=== PATIENT | female | born 1945 | race Caucasian/White ===

== ENCOUNTER 2016-07-19 16:09 | Inpatient (IN) | payer MEDICARE ==
[~2016-07-19] VITALS: Ht 154.9 cm; Wt 52.6 kg
[~2016-07-19 16:09] MED LIST: CHOL20006 PO; DIVA125T3 PO; LEVO125T8 PO; LORA0.5T PO; MELA3TAB PO; MEMA10TA PO; POTA10CA43 PO; RISP0.5T2 PO; RISP1TAB7 PO; RIVA1PAT3 TP; SERT100T PO
[2016-07-19] MEDS ORDERED: SULFAMETH/TRIMETH 800/160 MG 1 UDTAB TABLET PO ONE (16:30)
[2016-07-19 16:50] LABS: CALCIUM, SERUM 9.6 mg/dL (8.5-10.1); CARBON DIOXIDE 27 mmol/L (21-32); CHLORIDE 107 mmol/L (98-107); CREATININE 0.6 mg/dL (0.6-1.3); GLUCOSE 108 mg/dL (74-106); POTASSIUM 3.1 mmol/L (3.5-5.1); SODIUM SERUM 145 mmol/L (136-145); UREA NITROGEN, BLOOD 14 mg/dL (7-18)
[2016-07-19 17:04] LABS: BASOPHILS % (AUTO) 0.5 % (0.0-2.0); EOSINOPHILS # (AUTO) 0.1 /CMM (0.0-0.7)
[2016-07-19 17:11] LABS: EOSINOPHILS % (AUTO) 0.8 % (0.0-6.0); HEMATOCRIT 40 % (33-45); HEMOGLOBIN 13.2 g/dL (11.5-14.8); LYMPHOCYTES # (AUTO) 2.5 /CMM (0.8-4.8); LYMPHOCYTES % (AUTO) 29.9 % (20.0-44.0); MEAN CORPUSCULAR HEMOGLOBIN 31 PG (26.0-33.0); MEAN CORPUSCULAR HGB CONC 33 g/dl (31.0-36.0); MEAN CORPUSCULAR VOLUME 94 fL (82-100); MONOCYTES # (AUTO) 0.4 /CMM (0.1-1.30); NEUTROPHILS # (AUTO) 5.4 /CMM (1.8-8.9); NEUTROPHILS % (AUTO) 63.8 % (43.0-81.0); PLATELET COUNT (AUTO) 242 /CMM (150-450); RED BLOOD CELL COUNT(AUTO) 4.23 MIL/uL (4.0-5.2); WHITE BLOOD COUNT (AUTO) 8.4 K/uL (4.3-11.0)
[2016-07-19 17:18] LABS: TROPONIN I < 0.017 ng/mL (0.00-0.056)
[2016-07-19 17:33] LABS: EOSINOPHILS % (MANUAL) 1 % (0-4); LYMPHOCYTES % (MANUAL) 29 % (16-48); MONOCYTES % (MANUAL) 4 % (0-11.0); NEUTROPHILS % (MANUAL) 66 (42-76)
[2016-07-19] MEDS ORDERED: LORAZEPAM INJ 2 MG/ML VIAL ONE (17:50)
[2016-07-19] MEDS ORDERED: LORAZEPAM INJ 2 MG/ML VIAL IV ONE (18:00)
[2016-07-19 18:05] LABS: INR 0.92 (0.87-1.13); PROTHROMBIN TIME 9.8 SECS (9.5-12.7)
[2016-07-19] MEDS ORDERED: LEVO150T8 PO (19:02)
[2016-07-19] MEDS ORDERED: MIRT15TA PO (19:02)
[2016-07-19] MEDS ORDERED: LEVE500T9 PO (19:02)
[2016-07-19 21:10] VITALS: BP 130/94
[2016-07-19] MEDS ORDERED: SERTRALINE HCL 50 MG TABLET ONE (21:54)
[2016-07-19] MEDS: SERTRALINE HCL 50 MG TABLET PO SCH (21:59)
[2016-07-19] MEDS ORDERED: ACETAMINOPHEN 650 MG/20.3 ML UDC PO PRN (22:30)
[2016-07-19] MEDS ORDERED: ZOLPIDEM TARTRATE 5 MG TABLET PO PRN (22:30)
[2016-07-19] MEDS ORDERED: LORAZEPAM 0.5 MG TABLET PO PRN (22:30)
[2016-07-19] MEDS ORDERED: ONDANSETRON HCL/PF 4 MG/2 ML VIAL IV PRN (22:30)
[2016-07-19] MEDS ORDERED: LORAZEPAM 0.5 MG TABLET ONE (23:44)
[2016-07-20 06:53] LABS: BASOPHILS % (AUTO) 0.2 % (0.0-2.0); HEMATOCRIT 33 % (33-45); HEMOGLOBIN 11.4 g/dL (11.5-14.8); LYMPHOCYTES % (AUTO) 10.8 % (20.0-44.0); MEAN CORPUSCULAR HEMOGLOBIN 32 PG (26.0-33.0); MEAN CORPUSCULAR HGB CONC 34 g/dl (31.0-36.0); MEAN CORPUSCULAR VOLUME 93 fL (82-100); MONOCYTES # (AUTO) 0.6 /CMM (0.1-1.30); MONOCYTES % (AUTO) 5.7 % (2.0-12.0); NEUTROPHILS # (AUTO) 8.1 /CMM (1.8-8.9); NEUTROPHILS % (AUTO) 83.3 % (43.0-81.0); PLATELET COUNT (AUTO) 270 /CMM (150-450); RDW COEFFICIENT OF VARIATION 13.2 (11.5-15.0); RED BLOOD CELL COUNT(AUTO) 3.58 MIL/uL (4.0-5.2); WHITE BLOOD COUNT (AUTO) 9.7 K/uL (4.3-11.0)
[2016-07-20] MEDS ORDERED: ALPR0.5T8 PO (07:11)
[2016-07-20 07:20] VITALS: BP 142/82
[2016-07-20 07:20] LABS: CALCIUM, SERUM 8.6 mg/dL (8.5-10.1); CREATININE 0.6 mg/dL (0.6-1.3); MAGNESIUM 1.8 mg/dL (1.8-2.4)
[2016-07-20] MEDS: MORPHINE SULFATE INJ 2 MG/ML DISP.SYRIN IV PRN (07:24)
[2016-07-20] MEDS ORDERED: LEVOTHYROXINE SODIUM 150 MCG TABLET PO SCH (07:30)
[2016-07-20] MEDS: LEVETIRACETAM (250 MG) 250 MG TABLET PO SCH ×2 (07:48→20:55)
[2016-07-20 07:50] LABS: POTASSIUM 2.7 mmol/L (3.5-5.1)
[2016-07-20 08:00] VITALS: BP 135/81
[2016-07-20] MEDS ORDERED: POTASSIUM CHLORIDE 20 MEQ TAB.PRT.SR PO ONE (08:30)
[2016-07-20] MEDS: LEVOTHYROXINE SODIUM 75 MCG TABLET PO SCH (08:34)
[2016-07-20] MEDS: SERTRALINE HCL 50 MG TABLET PO SCH ×2 (08:41→20:56)
[2016-07-20] MEDS: POTASSIUM CHLORIDE 10 MEQ TABLET.SA PO SCH (08:41)
[2016-07-20] MEDS: CHOLECALCIFEROL 1,000 UNIT TABLET (VIT D3) PO SCH (08:42)
[2016-07-20] MEDS: MEMANTINE HCL 5 MG TABLET PO SCH (08:42)
[2016-07-20] MEDS: risperiDONE 1 MG TABLET PO SCH ×2 (08:51→20:57)
[2016-07-20] MEDS ORDERED: risperiDONE 1 MG TABLET PO SCH (09:00)
[2016-07-20] MEDS ORDERED: LEVETIRACETAM (250 MG) 250 MG TABLET PO SCH (09:00)
[2016-07-20] MEDS ORDERED: POTASSIUM CHLORIDE 10 MEQ TABLET.SA PO ONE (09:00)
[2016-07-20] MEDS ORDERED: IV SET PRIMARY PUMP SET 1 EA INFUS.SET MC ONE ×2 (09:22)
[2016-07-20] MEDS ORDERED: SECONDARY IV SET 1 EA INFUS.SET MC ONE (09:26)
[2016-07-20] MEDS ORDERED: IV NS 0.9% 250 ML IV ONE (09:26)
[2016-07-20] MEDS: LORAZEPAM 0.5 MG TABLET PO PRN ×3 (09:36→23:48)
[2016-07-20] MEDS: RIVASTIGMINE TARTRATE 4.6 MG PATCH.TD24 TD SCH (09:37)
[2016-07-20] MEDS: POTASSIUM CL. PREMIX PERIPHER. 50 ML IV SCH ×4 (09:37→14:46)
[2016-07-20] MEDS ORDERED: DIVALPROEX SODIUM 125 MG TABLET.DR PO SCH (13:00)
[2016-07-20] MEDS: DIVALPROEX SODIUM 125 MG TABLET.DR PO SCH (13:53)
[2016-07-20 14:14] LABS: THYROID STIMULATING HORMONE 7.647 uIU/mL (0.358-3.74)
[2016-07-20] MEDS: ENOXAPARIN SODIUM 40 MG/0.4 ML DISP.SYRIN SQ SCH (15:10)
[2016-07-20 16:00] VITALS: BP 144/72
[2016-07-20 20:00] VITALS: BP 131/77
[2016-07-20] MEDS: MIRTAZAPINE 15 MG TABLET PO SCH (20:57)
[2016-07-20] MEDS ORDERED: ENOXAPARIN SODIUM 40 MG/0.4 ML DISP.SYRIN SQ SCH (21:00)
[2016-07-21] VITALS (10 sets, daily range): BP systolic 94–117; BP diastolic 32–79
[2016-07-21] MEDS: LEVETIRACETAM (250 MG) 250 MG TABLET PO SCH ×2 (06:43→20:00)
[2016-07-21] MEDS: PANTOPRAZOLE 40 MG TABLET.DR PO SCH (06:43)
[2016-07-21] MEDS: LEVOTHYROXINE SODIUM 75 MCG TABLET PO SCH (06:43)
[2016-07-21 06:59] LABS: BASOPHILS % (AUTO) 0.3 % (0.0-2.0); EOSINOPHILS % (AUTO) 0.4 % (0.0-6.0); HEMATOCRIT 33 % (33-45); HEMOGLOBIN 11.2 g/dL (11.5-14.8); LYMPHOCYTES # (AUTO) 1.3 /CMM (0.8-4.8); LYMPHOCYTES % (AUTO) 13.3 % (20.0-44.0); MEAN CORPUSCULAR HEMOGLOBIN 32 PG (26.0-33.0); MEAN CORPUSCULAR HGB CONC 34 g/dl (31.0-36.0); MEAN CORPUSCULAR VOLUME 95 fL (82-100); MONOCYTES # (AUTO) 0.7 /CMM (0.1-1.30); MONOCYTES % (AUTO) 7.4 % (2.0-12.0); NEUTROPHILS # (AUTO) 7.4 /CMM (1.8-8.9); NEUTROPHILS % (AUTO) 78.6 % (43.0-81.0); PLATELET COUNT (AUTO) 240 /CMM (150-450); RDW COEFFICIENT OF VARIATION 13.1 (11.5-15.0); RED BLOOD CELL COUNT(AUTO) 3.51 MIL/uL (4.0-5.2); WHITE BLOOD COUNT (AUTO) 9.4 K/uL (4.3-11.0)
[2016-07-21 07:15] LABS: CALCIUM, SERUM 8.6 mg/dL (8.5-10.1); CREATININE 0.6 mg/dL (0.6-1.3); MAGNESIUM 1.9 mg/dL (1.8-2.4); PHOSPHORUS 2.8 mg/dL (2.5-4.9); POTASSIUM 3.6 mmol/L (3.5-5.1)
[2016-07-21] MEDS: MEMANTINE HCL 5 MG TABLET PO SCH (08:20)
[2016-07-21] MEDS: CHOLECALCIFEROL 1,000 UNIT TABLET (VIT D3) PO SCH (08:20)
[2016-07-21] MEDS: SERTRALINE HCL 50 MG TABLET PO SCH ×2 (08:20→21:00)
[2016-07-21] MEDS: risperiDONE 1 MG TABLET PO SCH ×2 (08:21→22:00)
[2016-07-21] MEDS: POTASSIUM CHLORIDE 10 MEQ TABLET.SA PO SCH (08:21)
[2016-07-21] MEDS: RIVASTIGMINE TARTRATE 4.6 MG PATCH.TD24 TD SCH (08:21)
[2016-07-21] MEDS ORDERED: IV SET PRIMARY PUMP SET 1 EA INFUS.SET MC ONE (09:22)
[2016-07-21] MEDS: IV 1/2NS 1000 ML 1,000 ML IV PRN (09:29)
[2016-07-21] MEDS: MORPHINE SULFATE INJ 2 MG/ML DISP.SYRIN IV PRN (09:53)
[2016-07-21] MEDS: DIVALPROEX SODIUM 125 MG TABLET.DR PO SCH (14:00)
[2016-07-21] MEDS ORDERED: ANESTHESIA TRAY IN PYXIS 1 EA TRAY MC ONE ×2 (16:35→18:42)
[2016-07-21] MEDS ORDERED: BACITRACIN 50000 UNITS/VIAL ONE (16:38)
[2016-07-21] MEDS ORDERED: ROCURONIUM BROMIDE 50 MG/5 ML ONE (16:56)
[2016-07-21] MEDS ORDERED: FENTANYL PF 100MCG/2ML AMPUL ONE (16:56)
[2016-07-21] MEDS ORDERED: BUPIVACAINE 0.5 % PF 150 MG/30 ML VIAL ONE (18:18)
[2016-07-21] MEDS: ENOXAPARIN SODIUM 40 MG/0.4 ML DISP.SYRIN SQ SCH (20:45)
[2016-07-21] MEDS: MIRTAZAPINE 15 MG TABLET PO SCH (22:00)
[2016-07-22] MEDS: MORPHINE SULFATE INJ 2 MG/ML DISP.SYRIN IV PRN ×3 (01:05→18:23)
[2016-07-22] MEDS: ANCEF 1 GM/50 ML D5W IV SCH ×6 (01:05→17:53)
[2016-07-22] MEDS ORDERED: SECONDARY IV SET 1 EA INFUS.SET MC ONE ×2 (01:06→14:51)
[2016-07-22] MEDS: LEVETIRACETAM (250 MG) 250 MG TABLET PO SCH ×2 (01:12→20:48)
[2016-07-22] MEDS: risperiDONE 1 MG TABLET PO SCH ×3 (01:13→21:54)
[2016-07-22] MEDS: MIRTAZAPINE 15 MG TABLET PO SCH ×2 (01:14→21:58)
[2016-07-22] MEDS: SERTRALINE HCL 50 MG TABLET PO SCH ×3 (01:15→20:48)
[2016-07-22] MEDS: IV 1/2NS 1000 ML 1,000 ML IV PRN (05:29)
[2016-07-22 07:53] LABS: BASOPHILS % (AUTO) 0.1 % (0.0-2.0); EOSINOPHILS # (AUTO) 0.1 /CMM (0.0-0.7); EOSINOPHILS % (AUTO) 0.7 % (0.0-6.0); HEMATOCRIT 29 % (33-45); LYMPHOCYTES # (AUTO) 1.2 /CMM (0.8-4.8); LYMPHOCYTES % (AUTO) 14.7 % (20.0-44.0); MEAN CORPUSCULAR HEMOGLOBIN 33 PG (26.0-33.0); MEAN CORPUSCULAR HGB CONC 35 g/dl (31.0-36.0); MEAN CORPUSCULAR VOLUME 94 fL (82-100); MONOCYTES # (AUTO) 0.5 /CMM (0.1-1.30); MONOCYTES % (AUTO) 6.6 % (2.0-12.0); NEUTROPHILS # (AUTO) 6.1 /CMM (1.8-8.9); NEUTROPHILS % (AUTO) 77.9 % (43.0-81.0); PLATELET COUNT (AUTO) 211 /CMM (150-450); RDW COEFFICIENT OF VARIATION 12.8 (11.5-15.0); RED BLOOD CELL COUNT(AUTO) 3.09 MIL/uL (4.0-5.2); WHITE BLOOD COUNT (AUTO) 7.9 K/uL (4.3-11.0)
[2016-07-22 08:00] VITALS: BP 95/62
[2016-07-22 08:01] LABS: CALCIUM, SERUM 8.3 mg/dL (8.5-10.1); CREATININE 0.6 mg/dL (0.6-1.3); MAGNESIUM 1.8 mg/dL (1.8-2.4); PHOSPHORUS 4.1 mg/dL (2.5-4.9); POTASSIUM 3.3 mmol/L (3.5-5.1)
[2016-07-22 08:23] VITALS: BP 95/62
[2016-07-22] MEDS: CHOLECALCIFEROL 1,000 UNIT TABLET (VIT D3) PO SCH (09:24)
[2016-07-22] MEDS: PANTOPRAZOLE 40 MG TABLET.DR PO SCH (09:24)
[2016-07-22] MEDS: POTASSIUM CHLORIDE 10 MEQ TABLET.SA PO SCH (09:25)
[2016-07-22] MEDS: LEVOTHYROXINE SODIUM 175 MCG TABLET PO SCH (09:25)
[2016-07-22] MEDS: MEMANTINE HCL 5 MG TABLET PO SCH (09:25)
[2016-07-22] MEDS: RIVASTIGMINE TARTRATE 4.6 MG PATCH.TD24 TD SCH (09:26)
[2016-07-22] MEDS ORDERED: IV SET PRIMARY PUMP SET 1 EA INFUS.SET MC ONE (10:11)
[2016-07-22 10:19] LABS: *SPE A/G RATIO 1.3 (0.7-1.7); *SPE ALBUMIN 3.5 g/dL (2.9-4.4); *SPE ALPHA-1-GLOBULIN 0.3 g/dL (0.0-0.4); *SPE ALPHA-2-GLOBULIN 0.8 g/dL (0.4-1.0); *SPE BETA GLOBULIN 1.1 g/dL (0.7-1.3); *SPE GLOBULIN, TOTAL 2.8 g/dL (2.2-3.9); *SPE M-SPIKE Not Observed g/dL (Not Observed); *SPE PROTEIN TOTAL 6.3 g/dL (6.0-8.5); *SPEGAMMA GLOBULIN 0.6 g/dL (0.4-1.8)
[2016-07-22] MEDS: POTASSIUM CL. PREMIX PERIPHER. 50 ML IV SCH ×2 (10:51→11:56)
[2016-07-22] MEDS: DIVALPROEX SODIUM 125 MG TABLET.DR PO SCH (15:01)
[2016-07-22] MEDS: SOD FERRIC GLUC 125 MG in IV NS 0.9% 100 ML IV SCH (15:02)
[2016-07-22 15:59] VITALS: BP 115/93
[2016-07-22 20:00] VITALS: BP 106/75
[2016-07-22] MEDS ORDERED: ENOXAPARIN SODIUM 40 MG/0.4 ML DISP.SYRIN SQ SCH (21:00)
[2016-07-22 22:00] VITALS: BP 106/75
[2016-07-22] MEDS: LORAZEPAM 0.5 MG TABLET PO PRN (23:36)
[2016-07-23] MEDS: IV 1/2NS 1000 ML 1,000 ML IV PRN (00:37)
[2016-07-23] MEDS: MORPHINE SULFATE INJ 2 MG/ML DISP.SYRIN IV PRN (01:30)
[2016-07-23 06:40] LABS: BASOPHILS % (AUTO) 0.2 % (0.0-2.0); EOSINOPHILS # (AUTO) 0.2 /CMM (0.0-0.7); EOSINOPHILS % (AUTO) 2.1 % (0.0-6.0); HEMATOCRIT 26 % (33-45); HEMOGLOBIN 8.9 g/dL (11.5-14.8); LYMPHOCYTES # (AUTO) 1.4 /CMM (0.8-4.8); LYMPHOCYTES % (AUTO) 18.4 % (20.0-44.0); MEAN CORPUSCULAR HEMOGLOBIN 32 PG (26.0-33.0); MEAN CORPUSCULAR HGB CONC 34 g/dl (31.0-36.0); MEAN CORPUSCULAR VOLUME 94 fL (82-100); MONOCYTES # (AUTO) 0.6 /CMM (0.1-1.30); MONOCYTES % (AUTO) 7.5 % (2.0-12.0); NEUTROPHILS # (AUTO) 5.6 /CMM (1.8-8.9); NEUTROPHILS % (AUTO) 71.8 % (43.0-81.0); PLATELET COUNT (AUTO) 217 /CMM (150-450); RDW COEFFICIENT OF VARIATION 13.3 (11.5-15.0); RED BLOOD CELL COUNT(AUTO) 2.76 MIL/uL (4.0-5.2); WHITE BLOOD COUNT (AUTO) 7.8 K/uL (4.3-11.0)
[2016-07-23 07:08] LABS: CALCIUM, SERUM 8.3 mg/dL (8.5-10.1); CREATININE 0.7 mg/dL (0.6-1.3); MAGNESIUM 1.8 mg/dL (1.8-2.4); PHOSPHORUS 3.5 mg/dL (2.5-4.9); POTASSIUM 3.5 mmol/L (3.5-5.1)
[2016-07-23 08:00] VITALS: BP 92/59
[2016-07-23] MEDS: CHOLECALCIFEROL 1,000 UNIT TABLET (VIT D3) PO SCH (08:23)
[2016-07-23] MEDS: SERTRALINE HCL 50 MG TABLET PO SCH (08:23)
[2016-07-23] MEDS: RIVASTIGMINE TARTRATE 4.6 MG PATCH.TD24 TD SCH (08:23)
[2016-07-23] MEDS: PANTOPRAZOLE 40 MG TABLET.DR PO SCH (08:24)
[2016-07-23] MEDS: LEVOTHYROXINE SODIUM 175 MCG TABLET PO SCH (08:24)
[2016-07-23] MEDS: risperiDONE 1 MG TABLET PO SCH (08:24)
[2016-07-23] MEDS: MEMANTINE HCL 5 MG TABLET PO SCH (08:24)
[2016-07-23] MEDS: LEVETIRACETAM (250 MG) 250 MG TABLET PO SCH (08:24)
[2016-07-23] MEDS: POTASSIUM CHLORIDE 10 MEQ TABLET.SA PO SCH (08:24)
[2016-07-23] MEDS ORDERED: Potassium Chloride 40 MEQ in IV D5/ 0.9% NACL 1,000 ML IV PRN (09:30)
[2016-07-23] MEDS ORDERED: NA PHOS,M-B/NA PHOS,DI-BA 1 EA ENEMA RC ONE (12:00)
[2016-07-23] MEDS ORDERED: SECONDARY IV SET 1 EA INFUS.SET MC ONE (12:54)
[2016-07-23] MEDS: SOD FERRIC GLUC 125 MG in IV NS 0.9% 100 ML IV SCH (13:16)
[2016-07-23] MEDS: DIVALPROEX SODIUM 125 MG TABLET.DR PO SCH (13:16)
[2016-07-23] MEDS: LORAZEPAM 0.5 MG TABLET PO PRN (15:23)
== END 2016-07-23 16:32 | DRG 482 ==
LOC: ER 16:10 → MEDSG2 19:04
PROVIDERS: ADMIT Internal Medicine; ATTEND Internal Medicine
PROC: 0QS706Z Reposition Left Upper Femur with Intramedullary Internal Fixation Device, Open Approach (ICD-10-PCS; principal; 2016-07-21 17:55)
DX: S72.142A Displaced intertrochanteric fracture of left femur, initial encounter for closed fracture (principal); E87.6 Hypokalemia; F39 Unspecified mood [affective] disorder; E03.9 Hypothyroidism, unspecified; G30.9 Alzheimer's disease, unspecified; F02.80 Dementia in other diseases classified elsewhere, unspecified severity, without behavioral disturbance, psychotic disturbance, mood disturbance, and anxiety; Z66 Do not resuscitate; Z79.899 Other long term (current) drug therapy; W18.30XA Fall on same level, unspecified, initial encounter; Y93.9 Activity, unspecified; Y92.009 Unspecified place in unspecified non-institutional (private) residence as the place of occurrence of the external cause; Y99.9 Unspecified external cause status; D50.9 Iron deficiency anemia, unspecified; R78.89 Finding of other specified substances, not normally found in blood; Z90.49 Acquired absence of other specified parts of digestive tract
CPT/HCPCS: 36415; 71010-TC; 72170-TC; 73020; 73550-TC; 80048-TC; 82306; 82728-TC; 83540-TC; 83735-TC; 84100-TC; 84155; 84165; 84439-TC; 84443-TC; 84484-TC; 85025-TC; 85730-TC; 86850-TC; 86921-TC; 87081-TC; 93307-TC; 97001-TC; 97116-TC; 97530-TC; A4606; A6209; A6402; C1713; J0690; J1100; J1650; J2060; J2270; J2405; J2704; J2916; J3010; J3480; J3490; J7030; J7042; J7050; J7060; Z7610

== ENCOUNTER 2016-11-16 14:58 | Emergency (ER) | payer MEDICARE ==
[~2016-11-16] VITALS: Ht 154.9 cm; Wt 60.8 kg
[~2016-11-16 14:58] MED LIST changes: +ALPR0.5T8 PO; +LEVE500T9 PO; -LEVO125T8 PO; +LEVO150T8 PO; +MIRT15TA PO
--- NOTE | 2016-11-16 15:05 | NUR ---
[id number] BIBRA 89 from home sent by PMD for multiple seizure today x 2 episodes. Skin is warm and non diaphoretic. Resp is even and unlabored with nad noted. Skin is warm and dry. Assisted to hospital gown. Placed on monitor. Will continuously monitor the patient. Dr Suazo at [facility] for eval.
[2016-11-16 15:29] LABS: BASOPHILS % (AUTO) 0.2 % (0.0-2.0); EOSINOPHILS % (AUTO) 0.1 % (0.0-6.0); HEMATOCRIT 39 % (33-45); HEMOGLOBIN 12.9 g/dL (11.5-14.8); LYMPHOCYTES # (AUTO) 1.1 /CMM (0.8-4.8); LYMPHOCYTES % (AUTO) 8.6 % (20.0-44.0); MEAN CORPUSCULAR HEMOGLOBIN 30 PG (26.0-33.0); MEAN CORPUSCULAR HGB CONC 33 g/dl (31.0-36.0); MEAN CORPUSCULAR VOLUME 91 fL (82-100); MONOCYTES # (AUTO) 0.5 /CMM (0.1-1.30); MONOCYTES % (AUTO) 3.7 % (2.0-12.0); NEUTROPHILS # (AUTO) 11.6 /CMM (1.8-8.9); NEUTROPHILS % (AUTO) 87.4 % (43.0-81.0); PLATELET COUNT (AUTO) 422 /CMM (150-450); RDW COEFFICIENT OF VARIATION 13.6 (11.5-15.0); RED BLOOD CELL COUNT(AUTO) 4.28 MIL/uL (4.0-5.2); WHITE BLOOD COUNT (AUTO) 13.3 K/uL (4.3-11.0)
[2016-11-16 15:42] LABS: CARBON DIOXIDE 24 mmol/L (21-32); CHLORIDE 105 mmol/L (98-107); CREATININE 0.9 mg/dL (0.6-1.3); GLUCOSE 180 mg/dL (74-106); POTASSIUM 3.7 mmol/L (3.5-5.1); SODIUM SERUM 142 mmol/L (136-145); UREA NITROGEN, BLOOD 15 mg/dL (7-18)
--- NOTE | 2016-11-16 15:42 | NUR ---
Patient transported for CT via gurney. Patient remains in stable condition at this time.
[2016-11-16 15:48] LABS: INR 0.94 (0.87-1.13)
[2016-11-16 15:49] LABS: TROPONIN I < 0.017 ng/mL (0.00-0.056)
[2016-11-16 15:56] LABS: ALCOHOL, BLOOD < 3 mg/dL (0-0)
[2016-11-16 16:03] LABS: APPEARANCE,URINE SL CLOUDY (CLEAR); BILIRUBIN,URINE NEGATIVE (NEGATIVE); BLOOD, URINE 1+ Ery/uL (NEGATIVE); COLOR,URINE YELLOW (YELLOW); KETONES,URINE NEGATIVE (NEGATIVE); LEUKOCYTE ESTERASE ,URINE NEGATIVE (NEGATIVE); NITRITE, URINE NEGATIVE (NEGATIVE); PROTEIN,URINE NEGATIVE (NEGATIVE); UGLUCOSE NEGATIVE (NEGATIVE); UROBILINOGEN,URINE 0.2 EU/dL (0.2)
[2016-11-16] MEDS ORDERED: MELA5TAB PO (16:15)
[2016-11-16] MEDS ORDERED: HYDR-552 PO (16:15)
[2016-11-16 16:55] LABS: BACTERIA,URINE Rare /HPF (None Seen); SQUAMOUS EPITHELIAL CELL,UR Few /HPF (None Seen); WBC,URINE 0-2 /HPF (0-3)
--- NOTE | 2016-11-16 17:10 | NUR ---
REPORT GIVEN TO NICOLE BRANDON FOR MARK TELE [phone]
[2016-11-16 17:45] LABS: BILIRUBIN,DIRECT 0.1 mg/dL (0.0-0.2); BILIRUBIN,TOTAL 0.3 mg/dL (0.2-1.0)
--- NOTE | 2016-11-16 17:55 | NUR ---
SPOKE WITH THE PATIENT'S PMD, DR CROFT AND PMD AGREED TO SEND THE PATIENT HOME.
--- NOTE | 2016-11-16 18:09 | NUR ---
IV removed. Catheter intact and site benign. Pressure and 4x4 applied to site. No bleeding noted.Patient discharged to home in stable condition. Written and verbal after care instructions given. Patient verbalizes understanding of instruction.
[2016-11-16 18:10] VITALS: BP 116/62
== END 2016-11-16 18:13 | disposition home or self-care (01) ==
LOC: ER 14:59 → UNDOADMIN 16:54 → MED 16:54 → ER 18:13
DX: G93.40 Encephalopathy, unspecified (principal); G40.909 Epilepsy, unspecified, not intractable, without status epilepticus; R79.1 Abnormal coagulation profile; R79.89 Other specified abnormal findings of blood chemistry; R82.99 Other abnormal findings in urine; R51 Headache; G30.9 Alzheimer's disease, unspecified; F02.80 Dementia in other diseases classified elsewhere, unspecified severity, without behavioral disturbance, psychotic disturbance, mood disturbance, and anxiety; M81.0 Age-related osteoporosis without current pathological fracture; Z90.49 Acquired absence of other specified parts of digestive tract
CPT/HCPCS: 36415; 70450-TC; 71010-TC; 80048-TC; 80305; 81000-TC; 82247-TC; 82248-TC; 82962-TC; 83605-TC; 84484-TC; 85025-TC; 85730-TC; 87040-TC; 87081-TC; 87086-TC; A4606; G0480; J1953; J2060; J7030; Z7610

== ENCOUNTER 2017-06-29 15:12 | Emergency (ER) | payer MEDICARE ==
[~2017-06-29 15:12] MED LIST changes: -ALPR0.5T8 PO; -DIVA125T3 PO; +HYDR-552 PO; -LORA0.5T PO; -MELA3TAB PO; +MELA5TAB PO; -RISP0.5T2 PO; +RISP0.5T5 PO
[2017-06-29] MEDS ORDERED: TDAP [DIPH/PERTUSSIS/TET] 0.5 ML VIAL IM ONE ×2 (15:30→15:38)
== END 2017-06-29 17:41 | disposition home or self-care (01) ==
DX: S02.82XA Fracture of other specified skull and facial bones, left side, initial encounter for closed fracture (principal); S01.112A Laceration without foreign body of left eyelid and periocular area, initial encounter; E03.9 Hypothyroidism, unspecified; F02.80 Dementia in other diseases classified elsewhere, unspecified severity, without behavioral disturbance, psychotic disturbance, mood disturbance, and anxiety; G30.9 Alzheimer's disease, unspecified; M81.0 Age-related osteoporosis without current pathological fracture; R56.9 Unspecified convulsions; Z90.49 Acquired absence of other specified parts of digestive tract; W01.0XXA Fall on same level from slipping, tripping and stumbling without subsequent striking against object, initial encounter; Y93.89 Activity, other specified; Y92.89 Other specified places as the place of occurrence of the external cause; Y99.8 Other external cause status